=== PATIENT | male | born 1990 | race Hispanic/Latino ===

== ENCOUNTER 2022-01-15 15:08 | Emergency (ER) | payer OTHER ==
[~2022-01-15] VITALS: Ht 177.8 cm; Wt 113.4 kg
== END 2022-01-15 17:12 | disposition home or self-care (01) ==
LOC: ED 15:08
DX: S09.91XA Unspecified injury of ear, initial encounter (principal); X58.XXXA Exposure to other specified factors, initial encounter
CPT/HCPCS: 99282

== ENCOUNTER 2022-08-06 17:31 | Emergency (ER) | payer OTHER ==
[~2022-08-06] VITALS: Ht 180.3 cm; Wt 113.4 kg
== END 2022-08-06 18:23 | disposition home or self-care (01) ==
LOC: ED 17:31
DX: B34.9 Viral infection, unspecified (principal)
CPT/HCPCS: 87880; 99283

== ENCOUNTER 2022-11-18 14:05 | Emergency (ER) | payer OTHER ==
[~2022-11-18] VITALS: Ht 180.3 cm; Wt 91.2 kg
[~2022-11-18 14:05] MED LIST: METRONIDAZOLE250 MG PO
== END 2022-11-18 15:58 | disposition home or self-care (01) ==
LOC: ED 14:05
DX: H69.91 Unspecified Eustachian tube disorder, right ear (principal)
CPT/HCPCS: 99282

== ENCOUNTER 2024-01-13 09:33 | Emergency (ER) | payer OTHER ==
[~2024-01-13] VITALS: Ht 180.3 cm; Wt 80.1 kg
[2024-01-13] MEDS ORDERED: AZITHROMYCIN 250 MG TAB PO ONE (10:00)
[2024-01-13] MEDS ORDERED: CEFTRIAXONE SOD 500 MG VIAL IM ONE (10:00)
[2024-01-13 10:32] VITALS: BP 145/90
[2024-01-13 11:52] LABS: N. GONORRRHOEAE BY PCR NOT DETECTED (NOT DETECT)
[2024-01-14 09:34] LABS: HIV 1,2 COMBO ANTIGEN/ANTIBODY Negative (Negative)
[2024-01-15 01:41] LABS: HSV 1 SUBTYPE BY PCR Not Detected (()); HSV 2 SUBTYPE BY PCR Not Detected (()); HSV SUBTYPE SOURCE Blood (())
== END 2024-01-13 10:32 | disposition home or self-care (01) ==
LOC: ED 09:33
PROVIDERS: Internal Medicine
DX: Z20.2 Contact with and (suspected) exposure to infections with a predominantly sexual mode of transmission (principal)
CPT/HCPCS: 36415; 87491; 87529; 96372; 99283; J0696

== ENCOUNTER 2024-06-21 09:08 | Emergency (ER) | payer OTHER ==
[~2024-06-21] VITALS: Ht 180.3 cm; Wt 78.4 kg
[2024-06-21 10:08] LABS: BASOPHILS 1.2 % (0-2); EOSINOPHILS 3.6 % (0-6); HEMATOCRIT 42.5 % (35.0-50.0); HEMOGLOBIN 14.6 g/dL (12.0-18.0); LYMPHOCYTES 31.1 % (24-44); MCHC 34.3 g/dl (30-36); MCV 93.2 fl (81-99); MONOCYTES 7.5 % (0-12); NEUTROPHILS 56.6 % (39-80); PLATELET COUNT 204 K/uL (140-440); RBC 4.56 M/ul (4.3-5.7); RDW 14.5 (10.5-15.0)
[2024-06-21 10:17] LABS: ANION GAP 13.9 (7-21); BUN/CREATININE RATIO 10.22 (6.0-28.6); CREATININE, SERUM 0.88 mg/dL (0.70-1.30); POTASSIUM 3.9 mmol/L (3.5-5.1)
[2024-06-21 10:46] VITALS: BP 119/69
--- NOTE | 2024-06-21 19:34 | EKG ---
[facility] [address] [place], [place] [address] Signed Sinus bradycardia Otherwise normal ECG No previous ECGs available Confirmed by Arina Bacon MD ([id number]) on 06/21/2024 7:34:37 PM Electronically Signed By: ARINA BACON MD 06/21/241933 PATIENT NAME: BRENNEN VELAZQUEZ Electrocardiogram DATE OF : [birth year] PHYSICIAN: ARINA BACON MD REPORT #: [id number] REPORT IS CONFIDENTIAL AND NOT TO BE RELEASED WITHOUT AUTHORIZATION
== END 2024-06-21 10:44 | disposition home or self-care (01) ==
LOC: ED 09:08
PROVIDERS: Emergency Medicine
DX: R55 Syncope and collapse (principal); R00.1 Bradycardia, unspecified; F17.210 Nicotine dependence, cigarettes, uncomplicated
CPT/HCPCS: 36415; 80048; 85025; 93005; 93010; 99284

== ENCOUNTER 2024-07-31 07:42 | Emergency (ER) | payer OTHER ==
[~2024-07-31] VITALS: Ht 180.3 cm; Wt 80.0 kg
[2024-07-31] MEDS ORDERED: NAPROSYN500 MG PO (08:12)
[2024-07-31] MEDS ORDERED: LIDODERM1 EACH TOP (08:12)
[2024-07-31] MEDS ORDERED: ACETAMINOPHEN 500 MG TAB PO ONE (08:15)
[2024-07-31 08:19] VITALS: BP 132/77
== END 2024-07-31 08:20 | disposition home or self-care (01) ==
LOC: ED 07:42
DX: S39.012A Strain of muscle, fascia and tendon of lower back, initial encounter (principal); X50.0XXA Overexertion from strenuous movement or load, initial encounter
CPT/HCPCS: 99283; A9270

== ENCOUNTER 2024-08-10 08:17 | Emergency (ER) | payer OTHER ==
[~2024-08-10] VITALS: Ht 180.3 cm; Wt 82.1 kg
[~2024-08-10 08:17] MED LIST changes: +LIDODERM1 EACH TOP; +NAPROSYN500 MG PO
--- OUTSIDE RECORDS SUMMARY | 2024-08-10 08:23 | XMS ---
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 Cassi VISIT COUNT (12 MO.) [address] [facility] TOTAL 4 NOTE: Visits indicate total known visits. ED/UCC VISIT TRACKING (12 MO.) 08/10/2024 08:17 [facility] [place] TYPE: Emergency COMPLAINT: - BACK PAIN 07/31/2024 07:43 [facility] [place] TYPE: Emergency COMPLAINT: - BACK PAIN DIAGNOSES: - Low back pain, unspecified - Overexertion from strenuous movement or load, initial encounter - Strain of muscle, fascia and tendon of lower back, initial encounter 06/21/2024 09:08 [facility] [place] TYPE: Emergency COMPLAINT: - SYNCOPE DIAGNOSES: - Bradycardia, unspecified - Nicotine dependence, cigarettes, uncomplicated - Syncope and collapse 01/13/2024 09:33 [facility] [place] TYPE: Emergency COMPLAINT: - STD EXPOSURE DIAGNOSES: - Contact with and (suspected) exposure to infections with a predominantly sexual mode of transmission INPATIENT VISIT TRACKING (12 MO.) No inpatient visits to display in this time frame [email or web address]
[2024-08-10 09:23] VITALS: BP 117/48
== END 2024-08-10 09:25 | disposition home or self-care (01) ==
LOC: ED 08:17
DX: S39.012A Strain of muscle, fascia and tendon of lower back, initial encounter (principal); X50.0XXA Overexertion from strenuous movement or load, initial encounter
CPT/HCPCS: 99283

== ENCOUNTER 2025-01-24 08:29 | Emergency (ER) | payer OTHER ==
[~2025-01-24] VITALS: Ht 180.3 cm; Wt 88.3 kg
--- OUTSIDE RECORDS SUMMARY | 2025-01-24 08:36 | XMS ---
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 [place]i VISIT COUNT (12 MO.) 5 [facility] TOTAL 5 NOTE: Visits indicate total known visits. ED/UCC VISIT TRACKING (12 MO.) 01/24/2025 08:30 [facility] TYPE: Emergency COMPLAINT: - ABDOMINAL PAIN 12/13/2024 11:22 [facility] TYPE: Emergency COMPLAINT: - NOSE BLEED 08/10/2024 08:17 [facility] TYPE: Emergency COMPLAINT: - BACK PAIN DIAGNOSES: - Overexertion from strenuous movement or load, initial encounter - Strain of muscle, fascia and tendon of lower back, initial encounter - Unspecified injury of lower back, initial encounter 07/31/2024 07:43 [facility] [place] TYPE: Emergency COMPLAINT: - BACK PAIN DIAGNOSES: - Low back pain, unspecified - Overexertion from strenuous movement or load, initial encounter - Strain of muscle, fascia and tendon of lower back, initial encounter 06/21/2024 09:08 [facility] [place] TYPE: Emergency COMPLAINT: - SYNCOPE DIAGNOSES: - Bradycardia, unspecified - Nicotine dependence, cigarettes, uncomplicated - Syncope and collapse INPATIENT VISIT TRACKING (12 MO.) No inpatient visits to display in this time frame [email or web address]
[2025-01-24 08:50] LABS: BASOPHILS 1.1 % (0.2-1.2); EOSINOPHILS 4.3 % (0.8-7.0); MCH 30.5 PG (25.7-32.2); MCHC 33.3 g/dL (32.3-36.5); MCV 91.6 fL (79.0-92.2); MONOCYTES 7.9 % (5.3-12.2); NEUTROPHILS 45.3 % (34.0-67.9); PLATELET COUNT 246 K/uL (163-337); RBC 5.24 M/uL (4.63-6.08)
[2025-01-24 08:53] LABS: BILIRUBIN, URINE NEGATIVE (negative); BLOOD/HGB, URINE NEGATIVE (Negative); KETONE, URINE NEGATIVE (Negative); LEUK ESTERASE, URINE NEGATIVE (negative); NITRITE, URINE NEGATIVE (negative)
[2025-01-24 09:00] LABS: ALBUMIN 4.9 g/dL (3.4-5.0); ALBUMIN/GLOBULIN RATIO 1.36 (1.1-2.4); ANION GAP 9.8 (7-21); BILIRUBIN, TOTAL 1.3 mg/dL (0.2-1.0); BUN/CREATININE RATIO 12.62 (6.0-28.6); CALCIUM 9.6 mg/dL (8.5-10.1); CREATININE, SERUM 1.03 mg/dL (0.70-1.30); POTASSIUM 3.8 mmol/L (3.5-5.1); PROTEIN, TOTAL 8.5 g/dL (6.4-8.2)
[2025-01-24 11:22] VITALS: BP 116/76
== END 2025-01-24 11:22 | disposition home or self-care (01) ==
LOC: ED 08:29
PROVIDERS: Emergency Medicine
DX: R10.31 Right lower quadrant pain (principal); Z90.89 Acquired absence of other organs
CPT/HCPCS: 36415; 74177; 80053; 81003; 83690; 85025; 99284; Q9967